=== PATIENT | male | born 1955 | race African-American/Black ===

== ENCOUNTER 2019-03-24 11:18 | Inpatient (IN) | payer MEDICARE, OTHER ==
[2019-03-24] MEDS ORDERED: Insulin Regular 300 UNITS/3 ML VIAL ONE (12:26)
[2019-03-24] MEDS ORDERED: Calcium Chloride 1 GM/10 ML Abboject SYRINGE ONE (12:26)
[2019-03-24] MEDS ORDERED: Dextrose 50% Abboject 50 ML SYRINGE ONE ×2 (12:26→12:27)
[2019-03-24] MEDS ORDERED: Sodium Bicarbonate 2.5 MEQ/5 ML VIAL ONE (12:26)
[2019-03-24] MEDS ORDERED: Sodium Bicarb 50 MEQ/50 ML VIAL ONE ×2 (12:28→13:17)
[2019-03-24 12:33] LABS: #Eosinphils 0.1 thou/uL (0.0-0.7); #Lymphocytes 0.9 thou/uL (1.20-3.40); #Monocytes 0.3 thou/uL (0.11-0.59); #Neutrophils 4.8 thou/uL (1.40-6.50); %Basophils 0.7 % (0.0-1.0); %Lymphocytes 14.5 % (21.0-51.0); %Monocytes 4.2 % (0.0-10.0); %Neutrophils 79.6 % (42.0-75.0); Hemoglobin 13.6 g/dL (14.0-18.0); Mean Corpuscular HGB CONC 33.7 g/dL (32.0-36.0); Mean Corpuscular Hemoglobin 30.6 pg (27.0-31.0); Mean Corpuscular Volume 90.9 fL (78.0-98.0); Mean Platelet Volume 7.2 fL (7.4-10.4); Platelet Count 184 thou/uL (130-400); RBC Distribution Width 15.3 % (11.5-14.5); Red Blood Cell (RBC) Count 4.45 mill/uL (4.70-6.10); White Blood Cell (WBC) Count 6.1 thou/uL (4.8-10.8)
[2019-03-24 12:58] LABS: ALT (SGPT) 17 U/L (8-55); AST (SGOT) 23 U/L (5-34); Albumin 4.3 g/dL (3.4-4.8); Alkaline Phosphatase 126 U/L (40-150); Anion Gap 18 mmol/L (10-20); BUN (Urea Nitrogen) 95 mg/dL (8.4-25.7); Bilirubin, Total 0.6 mg/dL (0.2-1.2); Calc. Creatinine Clearance 0 mL/min (70-130); Calcium 9.3 mg/dL (7.8-10.44); Carbon Dioxide 20 mmol/L (23-31); Chloride 98 mmol/L (98-107); Estimated GFR-MDRD 18; Globulin 3.2 g/dL (2.4-3.5); Glucose 84 mg/dL (80-115); Potassium 5.6 mmol/L (3.5-5.1); Protein, Total 7.5 g/dL (5.8-8.1); Sodium 130 mmol/L (136-145)
--- NOTE | 2019-03-24 13:12 | ULT ---
EXAM: Renal ultrasound: INDICATIONS: Acute kidney insufficiency COMPARISON: None. FINDINGS: Both kidneys have normal sonographic appearance. Both kidneys measure approximately 11 cm i n length. No hydronephrosis. Cortical echogenicity appears normally preserved. Urinary bladder is distended and appears unremarkable. IMPRESSION: Unremarkable exam
[2019-03-24 16:27] VITALS: BMI 22.5
[2019-03-24] MEDS: Carvedilol 6.25 MG TAB PO SCH (16:56)
[2019-03-24] MEDS: Sodium Chloride 0.9% 1,000 ML IV SCH (16:56)
--- NOTE | 2019-03-24 19:35 | CON ---
DATE OF CONSULTATION: HISTORY OF PRESENT ILLNESS: Mr. Richard is a 63-year-old black male, who has been seen by Renal Service for his acute kidney injury. He has a future appointment at the [facility] for further evaluation of this elevated creatinine. This has been worsening for the last several weeks. He also came to the ER today because of jaw pain, nausea, and decreased p.o. intake. He was supposed to be seen by the Dental Service several days from now. REVIEW OF SYSTEMS: Positive for jaw pain. Positive for dental caries. Positive for decreased p.o. intake. No chest pain. No shortness of breath. No nausea. No vomiting. No diarrhea. No constipation. No productive cough. No fever or chills. No headache. No gross hematuria. No diarrhea. No dysuria. No urinary frequency. No hematochezia. No melena. MEDICATIONS: Currently on medications; 1. Aspirin 81 mg tablet once a day. 2. Furosemide 40 mg once a day. 3. Lisinopril 10 mg once a day. 4. Melatonin 10 mg at bedtime. 5. Nitroglycerin p.r.n. 6. Protonix 40 mg tablet once a day. 7. KCl 20 mEq once a day. 8. Tamsulosin 0.4 mg daily. 9. Quetiapine 100 mg once a day. 10. Coreg 12.5 mg tablet b.i.d. PAST MEDICAL HISTORY: 1. Hypertension. 2. BPH. 3. Status post CHF. 4. GERD. 5. Schizophrenia. 6. DJD. PAST SURGICAL HISTORY: Status post right knee surgery and status post jaw surgery. ALLERGIES: IODINE. TRAUMA: Status post jaw fracture. IMMUNIZATION: Up-to-date. HOSPITALIZATIONS: Please see past medical history. FAMILY HISTORY: No family history of ESRD. SOCIAL HISTORY: The patient lives with his cousin and lives in [place]. No children. 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 Education ? high school. Sedentary lifestyle. Alcohol 6 pack per week. Smokes 3 to 5 cigarettes per day for the last 15 years. PHYSICAL EXAMINATION: VITAL SIGNS: Blood pressure noted at 147/77, heart rate 83, respiratory rate 18, temperature 97.3, and pulse ox 96%. GENERAL: Noted to be awake, alert, and comfortable, not in overt distress. He is noted to have some stuttering. HEENT: Pinkish conjunctivae. Anicteric sclerae. NECK: No neck mass. No carotid bruits. No JVD. CHEST: No deformities. LUNGS: Clear breath sounds. No wheezing. No crackles. HEART: Normal sinus rhythm. No murmur. No gallops. No rubs. ABDOMEN: Globular, soft, and nontender. No masses. EXTREMITIES: No edema. No deformities. NEUROLOGIC: Limited range of motion in right lower extremity. No tremors. Positive for stuttering. Oriented to 3 spheres. CURRENT HOSPITAL MEDICATIONS: Include; 1. Lipitor 40 mg at bedtime. 2. Amoxil 250 mg p.o. t.i.d. 3. Coreg 12.5 mg p.o. b.i.d. 4. Protonix 40 mg tablet daily. 5. Seroquel 100 mg at bedtime. 6. Zoloft 100 mg daily. 7. Normal saline 75 mL/hour. 8. Tramadol 50 mg q.6 p.r.n. LABORATORY DATA: Laboratories of March 24, 2019, white count 6.1 and hemoglobin 13.6. Sodium 130, potassium 5.6, chloride 98, carbon dioxide 20, BUN 95, creatinine 3.44, glucose 84, calcium 9.3, AST 23, ALT 17, and albumin 4.3. Renal ultrasound within normal. ASSESSMENT AND PLAN: 1. Acute kidney injury - consider hemodynamically-mediated renal dysfunction. The patient was on furosemide and lisinopril. Our plan is to hold off these two nephrotoxic drugs. Empiric volume repletion with normal saline at 75 mL/hour. There is no indication for any dialytic intervention. Consider reviewing the patient's urinalysis. If he could give us a urine sample. 2. Hypertension - continue current dose of Coreg. 3. Schizophrenia - currently on Seroquel and Zoloft. Overall agree with current management. Recheck basic metabolic and CBC in a.m. Job ID: [id number]
[2019-03-24] MEDS: AMOXicillin 250 MG CAP PO SCH (20:14)
[2019-03-24] MEDS: Atorvastatin Calcium 40 MG TAB PO SCH (20:15)
[2019-03-24] MEDS: traMADol HCl 50 MG TAB PO PRN (20:16)
[2019-03-24 20:55] LABS: Bilirubin Negative (Negative); Blood, Urine Negative (Negative); Clarity CLEAR (Clear); Glucose, Urine (Dipstick) Negative (Negative); Leukocyte Negative (Negative); Nitrite Negative (Negative); Protein, Urine (Dipstick) Negative (Neg-Trace); Urobilinogen 0.2 mg/dL (0.2-1.0)
[2019-03-24 20:56] LABS: Bacteria/HPF None Seen HPF (None Seen); Hyaline Casts/LPF 0-3 HYALINE CAST LPF (0-3 Hyaline); Pathc Cast-AUWi Flag 0.13 (0-2.49); RBC/HPF 0-3 HPF (0-3); Squamous Epithelial None Seen HPF (0-3); WBC/HPF None Seen HPF (0-3)
--- NOTE | 2019-03-24 22:15 | HP ---
CHIEF COMPLAINT: Mouth pain. HISTORY OF PRESENT ILLNESS: This patient is a 63-year-old male, who lives with his cousin in [place]. The patient presented to the emergency department at [facility] today complaining of pain with his mouth. The patient has apparently presented there in November, again in December with similar concerns. The patient reports that on previous occasions as well as at this time, he has pain related to his teeth and some swelling in his lips. He has four loose teeth and believes he needs most of them removed and says he has planned to go to [place] as early as next week to have this addressed. In the emergency department, the patient was noted to have acute on chronic renal insufficiency and was subsequently transferred to this facility for specialty assistance. The patient was also noted to have hyperkalemia with a potassium of 6.2 with a creatinine of 4.12. The patient received a liter of normal saline, a gram of Rocephin, 10 mg of Decadron, 25 g of D50 as well as insulin to address the renal function and the hyperkalemia. The patient reports he has a known history of renal issues, in fact apparently had an appointment with Dr. Jaimes in his office tomorrow. REVIEW OF SYSTEMS: The patient has had difficulty eating because of the dental issues. He also has some chronic pain in his right knee. He denies fevers or chills. All other systems reviewed. All pertinent positives and negatives noted in the history of present illness. PAST MEDICAL HISTORY: Notable for chronic kidney disease. His creatinine has been increasing based on labs we have in our electronic record system. In January, he was at 1.4; in March 17, he was at 2.33. He has congestive heart failure, enlarged prostate, reflux, hypertension. The patient reports that he has mental health issues, but cannot be more specific than that. PAST SURGICAL HISTORY: Right knee replacement. FAMILY HISTORY: Reviewed, noncontributory. SOCIAL HISTORY: The patient says he smokes about half a pack of cigarettes per day. States he drinks alcohol when he is depressed, but not daily and reported about 3 to 4 cans of beer per week. Denies drugs. He is not . He is full code. Lives with his cousin. His cousin would be his surrogate decision maker should that become necessary. ALLERGIES: SHELLFISH. HOME MEDICATIONS: 1. Aspirin 81 mg daily. 2. Atorvastatin 40 mg daily. 3. Coreg 12.5 b.i.d. 4. Lasix 40 mg daily. 5. Lisinopril 10 mg daily. 6. Melatonin 5 mg q.h.s. p.r.n. 7. Nitrostat p.r.n. 8. Pantoprazole 40 mg daily. 9. Potassium 20 mEq daily. 10. Seroquel 100 mg q.h.s. 11. Sertraline 100 mg daily. 12. Tamsulosin 0.4 mg daily. PHYSICAL EXAMINATION: VITAL SIGNS: On the patient's initial presentation in [place], his systolic pressure was in the 70s, responded to some fluids. Here, initial vital signs; the patient had a blood pressure of 91/58, O2 saturation 93% on room air, temperature 97.6, pulse is 53, respirations were 15. Most recent blood pressure 132/80, pulse 71, respirations 18, O2 saturation 95% on room air. GENERAL APPEARANCE: Age-appropriate male, in no distress. He is awake and alert. He has some mild generalized sarcopenia. HEENT: PERRL. He has poor oral dentition with at least 4 loose teeth. He does have some edema of his upper lip with some very mild irritation and gingivitis around the teeth in the upper lip. NECK: Supple and symmetric without lymphadenopathy, JVD, or bruits. HEART: Regular rate and rhythm without murmurs, gallops, or rubs. LUNGS: Clear to auscultation bilaterally with good chest wall expansion and air exchange. ABDOMEN: Soft, nontender, nondistended. Positive bowel sounds. No masses. No organomegaly. EXTREMITIES: No cyanosis, clubbing, or edema. PSYCHIATRIC: The patient appears to have generally normal affect. Appears to be generally poor IQ. LABORATORY DATA: White count 6.1, hemoglobin 13.6, platelets 184. Sodium 130, potassium 5.6, chloride 98, CO2 is 20, BUN 95, creatinine 3.44, glucose 84, calcium 9.3, AST 23, ALT 17. Troponin 0.01. Albumin is 4.3. EKG at the outside facility showed normal sinus rhythm with no significant ST wave changes. T-waves were a bit elevated. Renal ultrasound performed here is normal. IMPRESSION AND PLAN: 1. Acute on chronic renal failure. The patient was to see Dr. Jaimes as an outpatient tomorrow. Here, I did talk with him today. Recommended renal ultrasound and IV fluids. We will continue with IV fluids here. The patient has received additional dextrose and insulin as well as bicarbonate and calcium in the emergency department here. We will recheck his potassium level later today and recheck labs in the morning. Continue with the fluids. 2. Dehydration. I believe the patient is probably not having significant adequate p.o. intake because of his dental and oral health issues. In addition, he is on diuretics, which I think are exacerbating the problem. He was hypotensive in the other emergency department, he has responded to fluids, consistent with some hypovolemia. 3. Gingivitis. Continue with amoxicillin and tramadol. The patient certainly needs to have outpatient followup with a dental health professional. 4. History of congestive heart failure. I do not know much in the way of details. We will continue with the Coreg for now. 5. History of some form of mental health issues. The patient appears to be basically at his baseline at the moment. Continue with the Seroquel and sertraline. 6. Hyperlipidemia. Continue with the statin. Job ID: [id number]
[2019-03-25 05:16] LABS: #Lymphocytes 1.9 thou/uL (1.20-3.40); #Monocytes 0.7 thou/uL (0.11-0.59); #Neutrophils 5.2 thou/uL (1.40-6.50); %Basophils 0.3 % (0.0-1.0); %Eosinophils 0.4 % (0.0-10.0); %Lymphocytes 24.1 % (21.0-51.0); %Monocytes 8.5 % (0.0-10.0); %Neutrophils 66.8 % (42.0-75.0); Hemoglobin 12.2 g/dL (14.0-18.0); Mean Corpuscular HGB CONC 33.5 g/dL (32.0-36.0); Mean Corpuscular Hemoglobin 30.3 pg (27.0-31.0); Mean Corpuscular Volume 90.5 fL (78.0-98.0); Mean Platelet Volume 7.5 fL (7.4-10.4); Platelet Count 179 thou/uL (130-400); RBC Distribution Width 15.3 % (11.5-14.5); Red Blood Cell (RBC) Count 4.03 mill/uL (4.70-6.10); White Blood Cell (WBC) Count 7.7 thou/uL (4.8-10.8)
[2019-03-25 05:36] LABS: Anion Gap 15 mmol/L (10-20); BUN (Urea Nitrogen) 81 mg/dL (8.4-25.7); Calc. Creatinine Clearance 32 mL/min (70-130); Calcium 9.3 mg/dL (7.8-10.44); Carbon Dioxide 20 mmol/L (23-31); Chloride 101 mmol/L (98-107); Estimated GFR-MDRD 30; Glucose 101 mg/dL (80-115); Potassium 4.4 mmol/L (3.5-5.1); Sodium 132 mmol/L (136-145)
[2019-03-25] MEDS: Sodium Chloride 0.9% 1,000 ML IV SCH ×2 (06:18→18:38)
[2019-03-25] MEDS: Carvedilol 6.25 MG TAB PO SCH ×2 (07:58→16:17)
[2019-03-25] MEDS: traMADol HCl 50 MG TAB PO PRN ×2 (07:58→14:20)
[2019-03-25] MEDS: AMOXicillin 250 MG CAP PO SCH ×3 (07:59→20:04)
--- NOTE | 2019-03-25 09:52 | PRG ---
DATE OF SERVICE: 03/25/2019 SUBJECTIVE: Mr. Richard is a 63-year-old black male, who was seen by the Renal Service for his acute kidney injury. He came initially with nausea and decreased p.o. intake. He was given IV hydration. His furosemide and lisinopril have been discontinued. This morning, he is feeling a little better. He denies any chest pain or shortness of breath. OBJECTIVE: VITAL SIGNS: Blood pressure 147/77, heart rate 76, respiratory rate 20, temperature is 98, and pulse ox 99%. GENERAL: Awake, alert, comfortable, not in distress. SKIN: Adequate turgor. HEENT: Pinkish conjunctivae. Anicteric sclerae. No neck mass. No carotid bruits. No JVD. CHEST: No deformities. LUNGS: Clear breath sounds. No wheezing. No crackles. HEART: Normal sinus rhythm. No murmurs. No gallops or rubs. ABDOMEN: Globular, soft, nontender. No masses. EXTREMITIES: No edema. No deformities. MEDICATIONS: Medications of March 25, 2019, reviewed. LABORATORY DATA: March 25, 2019, shows a sodium 132, potassium 4.4, chloride 101, carbon dioxide 20, BUN 81, creatinine 2.65, GFR 30 mL/minute, calcium 9.3. White count 7.7, hemoglobin 12.2. Urinalysis, relatively benign. ASSESSMENT AND PLAN: Acute kidney injury - hemodynamically-mediated renal dysfunction. Diuretics and lisinopril are placed on hold. We will resume once renal function is much better. Continue gentle IV hydration. Recheck basic metabolic in a.m. No indication for any dialytic intervention. Agree with current management. Job ID: [id number]
--- NOTE | 2019-03-25 11:02 | PRG ---
DATE OF SERVICE: SUBJECTIVE: The patient is seen and examined at the bedside. He feels somewhat better. His appetite is somewhat improved. OBJECTIVE: VITAL SIGNS: Blood pressure is 147/77, pulse is 76, temperature is 98.0, respirations are 20, and O2 saturation is 99% on room air. HEENT: His head is atraumatic and normocephalic. Eyes are PERRLA. Sclerae are nonicteric. Oral mucosa is moist. NECK: Supple. LUNGS: Right base with some crackles. No wheezing. HEART: S1 and S2 normal. No S3. No S4. ABDOMEN: Soft, nontender, and mildly distended. Bowel sounds are present. No organomegaly. EXTREMITIES: No clubbing, cyanosis or edema. NEUROLOGICAL: He is alert and oriented x4. There is no any motor or sensory deficits. LABORATORY DATA: Labs showed white count of 7.7, hemoglobin 12.2, hematocrit 36.5, and platelet count 179,000. Chemistry showed sodium of 132, potassium 4.4, chloride 101, CO2 of 20, BUN 81, creatinine 2.65, and calcium 9.3. Urinalysis within normal limits. IMPRESSION: 1. Acute renal injury, most likely related to outpatient diuretic use. The patient is getting rehydrated and his creatinine is improving gradually. We will continue IV fluids at 75 mL/h. 2. Dehydration, as above. Continue IV fluids. 3. Gingivitis, on amoxicillin and tramadol outpatient visit with dentist. 4. History of congestive heart failure. Continue on Coreg. 5. Hyperlipidemia. Continue with statin Flomax and pantoprazole. We are going to still hold his TICO inhibitor and diuretics. Job ID: [id number]
[2019-03-25] MEDS: Topiramate 25 MG TAB PO SCH (20:04)
[2019-03-25] MEDS: Atorvastatin Calcium 40 MG TAB PO SCH (20:04)
[2019-03-26] MEDS: Sodium Chloride 0.9% 1,000 ML IV SCH (05:43)
[2019-03-26 06:07] LABS: Anion Gap 12 mmol/L (10-20); BUN (Urea Nitrogen) 40 mg/dL (8.4-25.7); Calc. Creatinine Clearance 53 mL/min (70-130); Calcium 9.5 mg/dL (7.8-10.44); Carbon Dioxide 21 mmol/L (23-31); Chloride 105 mmol/L (98-107); Estimated GFR-MDRD 54; Glucose 96 mg/dL (80-115); Potassium 4.9 mmol/L (3.5-5.1); Sodium 133 mmol/L (136-145)
[2019-03-26 08:01] VITALS: BP 148/82; TEMP 97.6
[2019-03-26] MEDS: AMOXicillin 250 MG CAP PO SCH (08:02)
[2019-03-26] MEDS: Topiramate 25 MG TAB PO SCH (08:02)
[2019-03-26] MEDS: Carvedilol 6.25 MG TAB PO SCH (08:03)
[2019-03-26] MEDS ORDERED: Aspirin 81 mg Enteric Coated Tablet PO SCH (09:00)
[2019-03-26] MEDS ORDERED: Tamsulosin HCl 0.4 MG CAP PO SCH (09:00)
--- NOTE | 2019-03-26 12:46 | DIS ---
DATE OF ADMISSION: 03/24/2019 DATE OF DISCHARGE: 03/26/2019 DIAGNOSES AT THE TIME OF DISCHARGE: 1. Acute renal injury, most likely related to overdiuresis. 2. Dehydration. 3. Gingivitis. 4. History of congestive heart failure. 5. Hyperlipidemia. HOSPITAL COURSE: The patient was a 63-year-old male, who was admitted to the hospital after he was evaluated at [facility] Emergency Room and was found to have creatinine of 4.12 and potassium of 6.2. He went there to be evaluated for a mouth pain. He received IV fluids, Decadron, Rocephin, and D50 for his hyperkalemia and was sent to the [facility] in [place], [place]. At the time of admission to hospital, his white count was 6.1, hemoglobin 13.6, sodium 130, potassium 5.6, chloride 98, CO2 of 20, BUN 95, creatinine 3.44, glucose 84. Troponin 0.01. Albumin 4.3. EKG showed normal sinus rhythm with no significant ST wave changes, T-wave were a bit elevated. Renal ultrasound was within normal limits. It was felt that the patient was dehydrated and he was placed on gentle hydration since he has a history of congestive heart failure in the past. His hyperkalemia was treated with insulin and bicarbonate. His gingivitis was treated with amoxicillin and tramadol, and his creatinine level gradually came down to 1.59 with gentle hydration. Clinically, he is doing significantly better. His diuretics were put on hold and his TICO inhibitor was put on hold during this visit along with potassium. We checked his urinary bladder residuals and they are below 100. PHYSICAL EXAMINATION: VITAL SIGNS: Blood pressure is 148/82, pulse is 53, temperature is 97.6, respirations are 20, and O2 saturation is 99% on room air. LUNGS: Clear. HEART: S1 and S2. Normal. ABDOMEN: Soft, nontender. CONDITION ON DISCHARGE AND DIET: He is discharged home in good condition with recommendation to stay on low-salt diet. ACTIVITY: As tolerated. HOME MEDICATIONS: 1. Amoxicillin 250 mg 3 times a day for additional 7 days. 2. Aspirin 81 mg once a day. 3. Atorvastatin 40 mg at bedtime. 4. Potassium chloride 10 mEq once a day. 5. Zoloft 100 mg once a day. 6. Carvedilol 12.5 mg twice a day. 7. Furosemide 20 mg once a day. 8. Aspirin 81 mg once a day. 9. Pantoprazole 40 mg once a day. 10. Flomax 0.4 mg once a day. 11. Seroquel 100 mg once a day. 12. Topiramate 50 mg twice a day. FOLLOWUP: He is going to follow up with his primary care physician in 1 week, and we recommend him to have at the same time. 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 Job ID: [id number]
== END 2019-03-26 15:22 | disposition home or self-care (01) | DRG 683 ==
LOC: ERS 11:18 → T4-A 16:03
PROVIDERS: ADMIT Internal Medicine; ATTEND Internal Medicine
DX: N17.9 Acute kidney failure, unspecified (principal); I13.2 Hypertensive heart and chronic kidney disease with heart failure and with stage 5 chronic kidney disease, or end stage renal disease; E87.5 Hyperkalemia; M25.561 Pain in right knee; F17.210 Nicotine dependence, cigarettes, uncomplicated; E86.0 Dehydration; E78.5 Hyperlipidemia, unspecified; K05.10 Chronic gingivitis, plaque induced; K21.9 Gastro-esophageal reflux disease without esophagitis; N40.0 Benign prostatic hyperplasia without lower urinary tract symptoms; N18.5 Chronic kidney disease, stage 5; I50.9 Heart failure, unspecified; F20.9 Schizophrenia, unspecified; M19.90 Unspecified osteoarthritis, unspecified site; T50.1X5A Adverse effect of loop [high-ceiling] diuretics, initial encounter; Z79.899 Other long term (current) drug therapy; Z91.013 Allergy to seafood; Z79.82 Long term (current) use of aspirin
CPT/HCPCS: 36415; 36416; 76770; 80048; 80053; 81001; 84484; 85025; 93005; 96361; 96374; 96375; J1815

== ENCOUNTER 2019-04-21 05:57 | Day surgery (SDC) | payer MEDICARE ==
[2019-04-20 10:03] VITALS: BMI 26.6
[2019-04-21] MEDS ORDERED: Heparin 10,000 UNITS/1 ML VIAL ONE (06:34)
[2019-04-21] MEDS ORDERED: Lidocaine 1% (PF) 30 ML VIAL ONE (06:39)
[2019-04-21 06:53] LABS: #Eosinphils 0.1 thou/uL (0.0-0.7); #Lymphocytes 1.5 thou/uL (1.20-3.40); #Monocytes 0.4 thou/uL (0.11-0.59); #Neutrophils 3.6 thou/uL (1.40-6.50); %Basophils 0.8 % (0.0-1.0); %Eosinophils 2.5 % (0.0-10.0); %Lymphocytes 26.8 % (21.0-51.0); %Monocytes 6.3 % (0.0-10.0); %Neutrophils 63.5 % (42.0-75.0); Hemoglobin 10.5 g/dL (14.0-18.0); Mean Corpuscular HGB CONC 33.3 g/dL (32.0-36.0); Mean Corpuscular Hemoglobin 31.2 pg (27.0-31.0); Mean Corpuscular Volume 93.7 fL (78.0-98.0); Mean Platelet Volume 6.6 fL (7.4-10.4); Platelet Count 242 thou/uL (130-400); RBC Distribution Width 16.1 % (11.5-14.5); Red Blood Cell (RBC) Count 3.38 mill/uL (4.70-6.10); White Blood Cell (WBC) Count 5.7 thou/uL (4.8-10.8)
[2019-04-21] MEDS ORDERED: Midazolam HCl 2 mg/2 ml Vial ONE (07:05)
[2019-04-21] MEDS ORDERED: Fentanyl 100 MCG/2 ML VIAL ONE (07:05)
[2019-04-21] MEDS ORDERED: Protamine Sulfate 50 MG/5 ML VIAL ONE (07:29)
[2019-04-21 07:43] LABS: ALT (SGPT) 14 U/L (8-55); AST (SGOT) 19 U/L (5-34); Albumin 3.9 g/dL (3.4-4.8); Alkaline Phosphatase 93 U/L (40-150); Anion Gap 12 mmol/L (10-20); BUN (Urea Nitrogen) 21 mg/dL (8.4-25.7); Bilirubin, Total 0.5 mg/dL (0.2-1.2); Calc. Creatinine Clearance 71 mL/min (70-130); Calcium 9.2 mg/dL (7.8-10.44); Carbon Dioxide 16 mmol/L (23-31); Cardiac Risk 2.8 (Less than 4.5); Chloride 110 mmol/L (98-107); Cholesterol 174 mg/dl (< 200 Desired); Estimated GFR-MDRD 72; Glucose 75 mg/dL (80-115); HDL Cholesterol 63 mg/dL (>60 Neg Risk); LDL Cholesterol, Calculated 67 mg/dL; Potassium 3.9 mmol/L (3.5-5.1); Protein, Total 6.9 g/dL (5.8-8.1); Sodium 134 mmol/L (136-145); Triglycerides 218 mg/dL (Less than 150)
--- NOTE | 2019-04-21 07:49 | RAD ---
XR Chest 1 View HISTORY: Preoperative evaluation COMPARISON: None FINDINGS: The heart size is normal. The lungs are well expanded without focal areas of consolidation, pneumothorax or pleural effusions. IMPRESSION: No radiographic evidence of acute cardiopulmonary process.
[2019-04-21] MEDS ORDERED: Acetaminophen/Codeine 30-300mg Tablet ONE (09:59)
[2019-04-21] MEDS ORDERED: Iopamidol 370 76% 100 ML VIAL ONE (12:19)
[2019-04-21] MEDS ORDERED: Iopamidol 370 76% 50 ML VIAL FS ONE (12:19)
--- NOTE | 2019-04-21 19:59 | DIS ---
DATE OF ADMISSION: 04/21/2019 DATE OF DISCHARGE: 04/21/2019 DISCHARGE DIAGNOSES: 1. Normal coronary arteries. 2. Severe left ventricular dysfunction with ejection fraction of 25% to 30%. 3. Hypertension. 4. Hypercholesterolemia. 5. Hypertriglyceridemia. 6. BPH. 7. History of panic attacks. 8. History of acute kidney injury one month ago. 9. Smoker. DISCHARGE MEDICATIONS: (It is very unclear what actually the patient taking at home. He was told to stop taking furosemide 40 mg). 1. Aspirin 81 daily. 2. Atorvastatin 40 daily. 3. Bumex 2 mg one b.i.d. 4. Carvedilol 12.5 mg b.i.d. 5. Protonix 40 daily. 6. KCl 20 mEq daily. 7. Aldactone 50 mg daily. 8. Flomax 0.4 mg daily. 9. Topamax 50 mg b.i.d. DISCHARGE DISPOSITION: The patient will be seen in 2 months in [place] with basic metabolic panel being obtained. HOSPITAL COURSE: Mr. Richard was observed after undergoing cardiac catheterization. This revealed normal coronary arteries, but severe left ventricular dysfunction with ejection fraction of 25% to 30%. He had been admitted here in on 03/24, with acute kidney injury with creatinine of 4.12 and a potassium of 6.2 when he was seen in [place]. He was transferred here, gently hydrated and his lisinopril was discontinued. As stated above, it is unclear exactly what he is taking at this time that is why he will be seen in 2 weeks with repeat blood test. His creatinine prior to this catheterization was 1.24 with a potassium of 3.9. His cholesterol is 174, triglycerides 218 (down from 450), HDL 63, LDL 67. He was instructed on a low-carbohydrate, low-cholesterol diet. Also with his severe left ventricular dysfunction, arrangements were made for a LifeVest and he would need repeat echocardiogram in 3 months, consideration be given to ICD implantation. The most difficult thing will be knowing exactly what medications he is taking at home. Job ID: [id number]
== END 2019-04-21 16:10 | disposition home or self-care (01) ==
LOC: CCL 05:57
PROVIDERS: ATTEND Internal Medicine Cardiovascular Disease
PROC: 4A023N7 Measurement of Cardiac Sampling and Pressure, Left Heart, Percutaneous Approach (ICD-10-PCS; principal; 2019-04-21)
DX: R94.30 Abnormal result of cardiovascular function study, unspecified (principal); I11.0 Hypertensive heart disease with heart failure; I50.9 Heart failure, unspecified; E78.00 Pure hypercholesterolemia, unspecified; E78.1 Pure hyperglyceridemia; E78.5 Hyperlipidemia, unspecified; F17.210 Nicotine dependence, cigarettes, uncomplicated; F41.9 Anxiety disorder, unspecified; N40.0 Benign prostatic hyperplasia without lower urinary tract symptoms; Z79.82 Long term (current) use of aspirin; Z79.899 Other long term (current) drug therapy; Z91.013 Allergy to seafood
CPT/HCPCS: 36415; 71045; 80053; 80061; 85025; 85347; 93458; 99152; C1769; J1644; J2001; J2250; J2720; J3010; Q9967